=== PATIENT | male | born 1995 | race Two or more races ===

== ENCOUNTER 2023-12-14 00:05 | Emergency (ER) | payer SELFPAY ==
[~2023-12-14] VITALS: Ht 180.3 cm; Wt 81.8 kg
[2023-12-14 00:36] VITALS: BP 142/93; PULSE 92; RESP 16; TEMP 98.3
[2023-12-14] MEDS: BACITRACIN 0.9 GM PACKET OINTMENT TP ONE (00:49)
[2023-12-14] MEDS: LIDOCAINE 1%/EPI 1:200,000/PF 10 ML VIAL SQ ONE (00:49)
[2023-12-14] MEDS: PERTUSS(ACELL),DIPH,TET/PF 0.5 ML SYRINGE [ADULT] IM. ONE (00:50)
== END 2023-12-14 01:22 | disposition home or self-care (01) ==
LOC: EMS 00:08
DX: S61.411A Laceration without foreign body of right hand, initial encounter (principal); F10.20 Alcohol dependence, uncomplicated; W45.8XXA Other foreign body or object entering through skin, initial encounter; Y93.89 Activity, other specified; Y92.89 Other specified places as the place of occurrence of the external cause; Y99.8 Other external cause status; Y90.9 Presence of alcohol in blood, level not specified
CPT/HCPCS: 99283; 73130; 90715; 90471; 12002; J3490

== ENCOUNTER 2023-12-24 18:21 | Emergency (ER) | payer SELFPAY ==
[~2023-12-24] VITALS: Ht 182.9 cm; Wt 81.8 kg
[2023-12-24 18:24] VITALS: TEMP 98
[2023-12-24 19:45] VITALS: BP 129/86; PULSE 68; RESP 18
== END 2023-12-24 19:47 | disposition home or self-care (01) ==
LOC: EMS 18:21
DX: S61.411D Laceration without foreign body of right hand, subsequent encounter (principal); F10.20 Alcohol dependence, uncomplicated; Z48.02 Encounter for removal of sutures; X58.XXXD Exposure to other specified factors, subsequent encounter; Y90.9 Presence of alcohol in blood, level not specified
CPT/HCPCS: 99281; Z7502